=== PATIENT | female | born 1980 | race Two or more races ===

== ENCOUNTER 2022-05-24 20:17 | Emergency (ER) | payer BC, OTHER ==
[~2022-05-24] VITALS: Ht 167.6 cm; Wt 68.2 kg
[2022-05-24 21:15] VITALS: BP 116/61
[2022-05-24 22:39] LABS: Urine Bacteria FEW /hpf (None Seen); Urine Blood TRACE /uL (Negative); Urine Mucus FEW (None Seen); Urine Specific Gravity 1.023 (1.001-1.035); Urine WBC 19 /hpf (0 - 5)
[2022-05-24] MEDS ORDERED: ONDANSETRON ODT 4 MG TAB PO ONE (23:15)
[2022-05-24] MEDS ORDERED: IBUPROFEN 800 MG TAB PO ONE (23:15)
[2022-05-24] MEDS ORDERED: IBUP800T26 PO (23:37)
[2022-05-24] MEDS ORDERED: CEPH-510 PO (23:37)
== END 2022-05-25 00:16 | disposition home or self-care (01) ==
LOC: ER 20:17
DX: R51.9 Headache, unspecified (principal); N39.0 Urinary tract infection, site not specified
CPT/HCPCS: 81001; 81025; 99283; Q0162